=== PATIENT | male | born 1950 | race Caucasian/White ===

== ENCOUNTER → 2020-03-31 10:10 | Outpatient (BNVA) | payer OTHER, SELFPAY | PROVIDERS: Visit Provider Specialist | DX: G95.20 Unspecified cord compression (principal); G82.22 Paraplegia, incomplete; M62.838 Other muscle spasm; G62.9 Polyneuropathy, unspecified; F17.210 Nicotine dependence, cigarettes, uncomplicated | CPT/HCPCS: 99205 ==

== ENCOUNTER → 2020-09-02 11:39 | Outpatient (BNVA) | payer OTHER, SELFPAY | PROVIDERS: Visit Provider Specialist | DX: G62.9 Polyneuropathy, unspecified (principal); M62.838 Other muscle spasm; G82.20 Paraplegia, unspecified; M48.02 Spinal stenosis, cervical region; G99.2 Myelopathy in diseases classified elsewhere; S24.101S Unspecified injury at T1 level of thoracic spinal cord, sequela; Y93.9 Activity, unspecified; F17.210 Nicotine dependence, cigarettes, uncomplicated | CPT/HCPCS: 99215 ==

== ENCOUNTER → 2020-09-09 08:59 | Outpatient (BNVA) | payer OTHER, SELFPAY | PROVIDERS: Visit Provider Orthopaedic Surgery | DX: M47.892 Other spondylosis, cervical region (principal); M54.2 Cervicalgia | CPT/HCPCS: 72050 ==

== ENCOUNTER → 2020-10-13 12:35 | Outpatient (BNVA) | payer OTHER, SELFPAY | PROVIDERS: PCP Nurse Practitioner; Visit Provider Orthopaedic Surgery | DX: Z01.812 Encounter for preprocedural laboratory examination (principal); Z20.822 Contact with and (suspected) exposure to COVID-19 | CPT/HCPCS: 87635 ==

== ENCOUNTER 2020-10-18 06:01 | Day surgery (SDC) | payer OTHER, SELFPAY ==
[2020-10-13 11:21] VITALS: BMI 24.4
--- NOTE | 2020-10-13 11:27 | ECG_ITS ---
[facility] Test Date: 2020-10-13 Pat Name: Jovany Adhikari Department: Room: Gender: Male Security Sme: : 1950 Requested By: Je Kingsley Order Number: [id number] Lyndon MD: ELADIO MATOS Measurements Intervals [employer] Rate: 56 P: 82 HI: 129 QRS: 81 QRSD: 90 T: 72 QT: 380 QTc: 369 Interpretive Statements SINUS BRADYCARDIA No previous ECG available for comparison Electronically Signed On 10-13-2020 21:10:02 CDT by ELADIO MATOS [email or web address]
--- NOTE | 2020-10-13 15:43 | ANES.PREANE2 ---
Pre-Anesthetic Assessment Pre-Anesthetic Assessment: Height/Weight: Height 1.65 m Weight 66.678 kg Proposed Procedure: Operation Date: 10/18/20 12:00 Proposed Procedures p ACDF C3-4 07183 C4-5 C5-6 insrumenation from 3-6 allograft 41673 66425 43142 84361 93507 M47.12(Not Applicable) - Godfrey H Geovanna, DO Was Beta Daniel taken within 24 hours: N/A Social: Social History: Tobacco and No alcohol Exam: Pre-Anes Outpt Exam: alert, oriented x 3 and regular rate & rhythm Airway: Submandibular: WNL Cervical ROM: WNL MP: 2 Dentition: Chipped Pulmonary: Pulmonary: COPD CV/HEM: CV/HEM: HTN Musc/skel: Musc/skel: Lower Back Pain Comments: Neck pain with BL upper extremity pain Neuropsych: Neuropsych: Neuropathy Anesthetic Plan: ASA status: 3 Anesthesia: General Risk of > 500 ml blood loss (7ml/kg in children): No PFSH Anesthesia PFSH: Family History Other CAD (coronary artery disease) Diabetes Social History Smoking and tobacco status: current every day smoker (1/2 pack a day ) cigarettes Packs smoked per day: 0.5 Alcohol intake: current Alcohol intake frequency: 0-2 Drinks per Day Alcohol type: beer and hard liquor History of recent travel: No Data Anesthesia Cardiac Studies: No Data to Display
[2020-10-18] VITALS (22 sets, daily range): BP systolic 103–135; BP diastolic 50–89; PULSE 58–90; RESP 10–25; TEMP 36.1–36.6; O2SAT 93–100
--- NOTE | 2020-10-18 | SCC_ITS ---
Procedure Done: 1. Anterior diskectomy C3/4 2. Anterior diskectomy C4/5 3. Anterior diskectomy C5/6 4. Insertion of cage at C3/4 5. Insertion of cage at C4/5 6. Insertion of cage C5/6 7. Instrumentation with anterior plate from C3-C6 8. Use of allograft 43.9 seconds of fluoroscopic guidance, for a cumulative dose of 3.21 mGy, was provided to Dr. Austin by the radiology department. C-arm images of the cervical spine were saved for the patient's permanent record. KIRAN
--- NOTE | 2020-10-18 | XR_ITS ---
WS: [id number] C-ARM RADIOGRAPHS CERVICAL SPINE; 3 IMAGES HISTORY: ACDF COMPARISON: None available. Intraoperative anterior cervical fusion with disc spacers has been performed. This fusion appears to extend from C3 to C7. XR/XR cervical spine 3V* 11809 IMPRESSION: Intraoperative imaging during anterior cervical fusion placement.
--- NOTE | 2020-10-18 06:21 | P.ANESUD_ITS ---
Pre-Anesthetic Update Pre-Anesthetic Assessment: Date of Surgery/Procedure: 10/18/20 Preop Patience gnosis: cervical spondylosis with myelopathy Proposed Procedure: Operation Date: 10/18/20 07:00 Proposed Procedures p ACDF C3-4 81153 C4-5 C5-6 insrumenation from 3-6 allograft 69973 37238 22615 07048 74772 M47.12(Not Applicable) - Godfrey Austin, DO Any changes to Pre-Anesthetic Assessment?: No Exam: Pre-Anes Outpt Exam: alert, oriented x 3, clear to auscultation bilaterally and regular rate & rhythm Cardiac Studies: No Data to Display
--- NOTE | 2020-10-18 06:21 | ANES.PAUD2 ---
Pre-Anesthetic Update Pre-Anesthetic Assessment: Date of Surgery/Procedure: 10/18/20 Preop Diagnosis: cervical spondylosis with myelopathy Proposed Procedure: Operation Date: 10/18/20 07:00 Proposed Procedures p ACDF C3-4 16359 C4-5 C5-6 insrumenation from 3-6 allograft 37013 40664 36303 76957 38413 M47.12(Not Applicable) - Godfrey Austin, DO Any changes to Pre-Anesthetic Assessment?: No Exam: Pre-Anes Outpt Exam: alert, oriented x 3, clear to auscultation bilaterally and regular rate & rhythm Cardiac Studies: No Data to Display
[2020-10-18] MEDS: sodium chloride 0.9% 1,000 ML 30 ML IV (06:28)
--- NOTE | 2020-10-18 06:39 | PM.HP ---
Providers/Chief Complaint Primary Care Provider: NICK Vang Chief Complaint: acdf History of Present Illness Jovany Adhikari is a 69 year old male valuation of his neck pain. He does use a walking cane and has a wide base gait. He is unsteady on his feet and frequently uses the wall for balance in clinic today. He states he fell twice in January of 2020. The first was a fall in a hallway and the second was in a kitchen and he hit his head on a cabinet. He describes new balance issues since his fall as well difficulty with fine motor skills such as using buttons. Onset: 01/2020 Duration: 7 months Characteristics: numbness, sharp, stabbing Severity: 08/28 Location: neck and back Radiating symptoms: numbness to hands Aggravating factors: laying down, hurts all the time Alleviating factors: gapapentine Neuro deficits: denies incontinence of bowel/bladder, saddle anesthesia. Prior tx: none Review of Systems Narrative: General ROS: negative for weight changes, fever ENT ROS: negative for nasal congestion, drainage or bleeding, sore throat, dysphagia or ear pain Eyes: PERRL Hematological and Lymphatic ROS: negative for swollen glands or abnormal bleeding Endocrine ROS: negative for polyuria/polydpsia or new changes in weight Respiratory ROS: negative for cough, shortness of breath, or wheezing Cardiovascular ROS: negative for chest pain or dyspnea on exertion Gastrointestinal ROS: negative for reflux, abdominal pain, change in bowel habits, or black or bloody stools Musculoskeletal ROS: negative for back pain, neck pain, or joint pain or swelling except for current problem Neurological ROS: negative for TIA or stoke symptoms Skin: no rashes Medications/Allergies Home Medications Medication Instructions Recorded Confirmed Last Taken Type Blood Pressure Medication PO 03/31/20 09/09/20 Unknown History Walker #1 ea 03/31/20 09/09/20 Unknown Rx albuterol sulfate 90 mcg/actuation 2 puff INHALATION Q6H 03/31/20 10/18/20 10/18/20 History aerosol inhaler baclofen 10 mg tablet 10 mg PO QID #120 tab 03/31/20 10/18/20 Unknown Rx budesonide-formoterol HFA 160 2 puff INHALATION BID 03/31/20 10/18/20 10/18/20 History mcg-4.5 mcg/actuation aerosol inhaler tiotropium bromide 1.25 2 puff INHALATION DAILY 03/31/20 10/13/20 Unknown History mcg/actuation mist for inhalation Bone Growth Stimulator E0748 #1 ea 10/07/20 Unknown Rx hydrocodone 5 mg-acetaminophen 325 1 tab PO Q4H PRN 7 Days #40 tab 10/14/20 Unknown Rx mg tablet Allergies Allergy/AdvReac Type Severity Reaction Status Date / Time No Known Allergies Allergy Verified 09/09/20 08:50 PFSH Acute PFSH: Family History Other CAD (coronary artery disease) Diabetes Social History Smoking and tobacco status: current every day smoker (1/2 pack a day ) cigarettes Packs smoked per day: 0.5 Alcohol intake: current Alcohol intake frequency: 0-2 Drinks per Day Alcohol type: beer and hard liquor History of recent travel: No Vitals/I&O/Wt Last Vital Signs Temp 97.6 F 10/18/20 06:19 Pulse 58 L 10/18/20 06:19 Resp 16 10/18/20 06:19 BP 127/73 10/18/20 06:19 Pulse Ox 98 10/18/20 06:19 Physical Exam Narrative: EXAM NARRATIVE: CONSTITUTIONAL: The patient is a normal appearing [] in no apparent distress. GENERAL: Patient in no acute distress. CARDIAC: Regular rate and rhythm. CHEST: Normal inspiratory effort, normal respiratory rate. ABDOMEN: Soft and nontender. SKIN: Clear, warm and intact. NEURO?PSYCH: The patient is alert and oriented to person, place and time. Sensorv /SILT Motor StrengthShoulder abduction C5 5/5Wrist extension C6 5/5Elbow extension C7 5/5Hand Stone Lathe Operator C8 5/5Finger abduction T15/5 Radial/ Ulnar/ Median n intact LowerSensory (SILT)Motor StrengthHin flexion L2/3Ant/inner thigh 5/5Hip adduction L2/3 5/5Knee extension L4 Lat thigh, 5/5Toe dorsiflexion L5 5/5Ankle dorsiflexion L5/ H41Cvdoufg flexion S1 5/5 DTRBleeps 2+Triceps 2+Brachioradialis 2+Patellar 2+Achilles 2+ MUSCULOSKELETAL: [] UPPEREXTREMITIES: The patient had full active ROM in fingers, wrist, elbow, and shoulder. The patient demonstrated ability to fully flex/extend/abduct/adduct fingers, make ok sign, cross 2nd/3rd digits, extend 1st digit fully.. Radial pulse 2+, CR<2 seconds. LOWER EXTREMITIES: Pt has full, active ROM of toes, ankle, knee, and hip. Dorsalis pedis/posterior tibialis pulses 2+, CR<2 seconds. SPINE: Skin warm, dry, intact. A&P Assessment and plan (1) Cervical spondylosis with myelopathy: Patient hyperextended his neck and a fall back in January has been having issues ever since patient has severe gait issues as well as numbness tingling weakness in his arms. Patient has severe myelopathy he has been progressing. Patient has failed all conservative therapy since this time. Which included physical therapy. At this point no injections or physical therapy can improve his symptoms. 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 My plan is to do a C3-4 C4-5 C5-6 ACDF. I discussed with the patient that he needs to quit smoking in order to allow for better fusion right as well as deal with any swallowing issues. I told him that patient is over 65 that smoke found to have more severe swallowing issues.. Discussed risk and benefits of surgery which include bleeding infection scar pain damage blood vessels nerves risk of further surgery and anesthesia risk. I also discussed with him and in detail the swallowing issues that can occur. At this point my plan is to proceed with surgery as long as he can cut back and quit smoking. His symptoms are severe and if he is unable to completely complete smoking I still will likely do surgery in order to facilitate keeping some of his function. I also did discuss that we will likely be able to get decompress from the back he does have some significant ligamentum flavum infolding at C5-6 and C 4 5. All this information is from the MRI taken on 05/21/2020 from the [facility]. 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
--- NOTE | 2020-10-18 10:38 | P.OP_ITS ---
Operative Report Date of procedure: October 18, 2020 Pre-op Diagnosis: cervical spondylosis with myelopathy Procedure Done: 1. Anterior diskectomy C3/4 2. Anterior diskectomy C4/5 3. Anterior diskectomy C5/6 4. Insertion of cage at C3/4 5. Insertion of cage at C4/5 6. Insertion of cage C5/6 7. Instrumentation with anterior plate from C3-C6 8. Use of allograft Surgeon: Godfrey Austin Anesthesia: General Estimated blood loss (mL): 20 Condition: stable Disposition: PACU Procedure: 1. Anterior diskectomy C3/4 2. Anterior diskectomy C4/5 3. Anterior diskectomy C5/6 4. Insertion of cage at C3/4 5. Insertion of cage at C4/5 6. Insertion of cage C5/6 7. Instrumentation with anterior plate from C3-C6 8. Use of allograft The patient was taken to the operating room, where he underwent general endotracheal anesthesia without complications. He was then positioned supine on the operating table, and all areas of impingement were well padded. The arms were carefully padded and tucked at his sides. A roll was placed between the shoulder blades.. An x-ray was done to determine the appropriate level for the skin incision. The entire neck was then sterilely prepped and draped in the usual fashion. Neuromonitoring was attached prior to prepping. A transverse skin incision was made and carried down to the platysma muscle. This was then split in line with its fibers. Blunt dissection was carried down medial to the carotid sheath and lateral to the trachea and esophagus until the anterior cervical spine was visualized. A needle was placed into a disc and an x-ray was done to determine its location. The longus colli muscles were then elevated bilaterally with the electrocautery unit. Self-retaining retractors were placed deep to the longus colli muscle. Attention was brought to the C3-4 level that was confirmed on x-ray. The microscope was then brought in. A radical anterior discectomies were performed at C3-4. This included complete removal of the anterior annulus, nucleus, and posterior annulus. The posterior longitudinal ligament was removed as were the posterior osteophytes. Foraminotomies were then accomplished bilaterally. This was done using a high speed pawan, kerrison rongeurs and curretes Once all of this was accomplished, the curved currette was used to check for any residual compression. The central canal was wide open as were the foramen. A high-speed bur was used to remove the cartilaginous endplates above and below the interspace. Bleeding cancellous bone was exposed. The disc space were measured and appropriate size cage were placed sterilely onto the field. Allograft graft was packed into the cages. The cage was then placed and there was good juxtaposition against the bleeding decorticated surfaces and good distraction of each interspace. Attention was brought to the next interspace. Attention was brought to the C4/5 level that was confirmed on x-ray. The microscope was then brought in. A radical anterior discectomies were performed at C4/5. This included complete removal of the anterior annulus, nucleus, and posterior annulus. The posterior longitudinal ligament was removed as were the posterior osteophytes. Foraminotomies were then accomplished bilaterally. This was done using a high speed pawan, kerrison rongeurs and curretes Once all of this was accomplished, the curved currette was used to check for any residual compression. The central canal was wide open as were the foramen. A high-speed bur was used to remove the cartilaginous endplates above and below the interspace. Bleeding cancellous bone was exposed. The disc space were measured and appropriate size cage were placed sterilely onto the field. Allogra ft graft was packed into the cages. The cage was then placed and there was good juxtaposition against the bleeding decorticated surfaces and good distraction of each interspace. Attention was brought to the next interspace. Attention was brought to the C5/6 level that was confirmed on x-ray. A caspar pin was placed into the C5 vertebrae and the C6 vertebrae. The disk space was then distracted. The microscope was then brought in. A radical anterior discectomies were performed at C5/6. This included complete removal of the anterior annulus, nucleus, and posterior annulus. The posterior longitudinal ligament was removed as were the posterior osteophytes. Foraminotomies were then accomplished bilaterally. This was done using a high speed pawan, kerrison rongeurs and curretes Once all of this was accomplished, the curved currette was used to check for any residual compression. The central canal was wide open as were the foramen. A high-speed bur was used to remove the cartilaginous endplates above and below the interspace. Bleeding cancellous bone was exposed. The disc space were measured and appropriate size cage were placed sterilely onto the field. Allograft graft was packed into the cages. The cage was then placed and there was good juxtaposition against the bleeding decorticated surfaces and good distraction of each interspace. Attention was brought to the next interspace. The appropriate size anterior cervical locking plate was chosen and bent into gentle lordosis. Two screws were then placed into each of the vertebral bodies at C3, C4, C5 and C6. There was excellent purchase. A final x-ray was done confirming good position of the hardware and Cages. The locking screws were then applied, also with excellent purchase. Following a final copious irrigation, there was good hemostasis and no dural leaks. The carotid pulse was strong. The wounds were then closed in layers using 2-0 Vicryl suture for the platysma muscle, 2-0 Vicryl suture for the subcutaneous tissue, and 4-0 monocryl suture in a subcuticular skin closure. Glue was placed followed by application of a sterile dressing. The drain was hooked to bulb suction. A soft collar was applied. The patient was then carefully returned to the supine position on his hospital bed where he was reversed and extubated and taken to the recovery room having tolerated the procedure well.
[2020-10-18] MEDS: midazolam 1 mg/mL INJ 2 mL IVP (11:13)
--- NOTE | 2020-10-18 12:56 | SUR.PHASEI ---
1035 pt to pacu SLEEPING WITH ORAL AIRWAY IN PLACE, VSS IV PATENT NECK DRESSSING D/I PT CALLED FOR C COLLAR FITTING.
--- NOTE | 2020-10-18 12:57 | SUR.PHASEI ---
1055 PT STILL WITH ORAL AIRWAY IN PLACE AND HAS REQUIRED MANUAL LIFT TO KEEP AIRWAY OPEN EVEN WITH AIRWAY IN PLACE, PT NOW RESTLESS TURNING HEAD SIDE TO SIDE BUT AIRWAY OCCLUDES IF NOT ASSISTED DR GUNN AT BEDSIDE PT MOANING 1110 WAS GOING TO GIVE FENTANYL FOR MOANING , EVEN THOUGH PT COULD NOT RESPOND APPROPRIATEBUT DR HENDRIX REQUESTED VERSED STARTING WITH 0.5MG. SEE MED GIVEN
--- NOTE | 2020-10-18 13:02 | SUR.PHASEI ---
1115 PT NOW OUT REQUIRES MANUAL ASSIST TO KEEP AIRWAY OPEN ORAL AIRWAY PLACED PT DID NOT AWAKE, MANUAL ASSIST NEEDED EVEN WITH ORAL AIRWAY, NECK DRESSING D/I C COLLAR IN PLACE NOW, VSS PT MOVES ALL EXTREMITIES HE WAS RESTLESS AND SITTING UP IN BED EARLIER, BUT REMAINS CONFUSED AND DOES NOT FOCUS ON SPEAKER. 1150 PT NOW AWAKES AND ORAL AIRWAY OUT PT YELLING AND TRYING TO GET UP PT CURSING CONTINUOUSLY PT DOES LOOK AT SPEAKER NOW AND KNOWS HE IS IN THE HOSPITAL PT REPEATEDLY ASKS TO GET UP TO PEE, PT GIVEN URINAL AND ASSISISTED PT LOUDLY REFUSED CURSING WANTS TO GET UP , OPS NURSE AT BEDSIDE ASSISTING TO CALM PT , PT INFORMED HE HAD A CATHETER IN OR AND MAY BE FEELING SOME URGENCY FROM THAT, PT REFUSED TO USE URINAL, PT ALMOST PULLED IV OUT TRYING TO GET OUT OF BED PT REPEATEDLY REMIANDED OF HIS SURROUNDINGS PT STATES ( DONT CARE, LET ME UP)
--- NOTE | 2020-10-18 13:07 | SUR.PHASEI ---
1205 HANOFF AT BEDSIDE PT TO OPS PER CART PT MORE COOPERATIVE, PT GIVEN SIPS OF WATER, AND ASSISTED UP TO SIDE OF BED PT LIMP AND WEAK BUY STOOD ON BOTH LEGS WITH ASSIST PT UNABLE TO VOICE PT ASSISTED BACK TO BED AND FAMILY IN TO BEDSIDE TO CALM PT .
--- NOTE | 2020-10-18 15:59 | ANE.PACU2 ---
Inpatient post-anesthesia follow up: Airway intact: Yes Vital signs: Temperature 97.8 F Pulse Rate 79 Respiratory Rate 15 Blood Pressure 134/88 Pulse Oximetry 95 Oxygen Delivery Me thod Room Air Oxygen Flow Rate 8 Fraction of Inspir ed Oxygen Hydration adequate: Yes Nausea and vomiting: No Pain level: 2 Mental status: Baseline
== END 2020-10-18 14:00 | disposition home or self-care (01) ==
PROVIDERS: PCP Nurse Practitioner; Visit Provider Orthopaedic Surgery
PROC: 0RB30ZZ Excision of Cervical Vertebral Disc, Open Approach (ICD-10-PCS; CPT 22551; principal; 2020-10-18 07:00)
DX: M47.12 Other spondylosis with myelopathy, cervical region (principal); F17.210 Nicotine dependence, cigarettes, uncomplicated
CPT/HCPCS: 20930; 22551; 22552 ×2; 22845; 22853 ×3; 51702; 72040; 76000; 93005; 97760; C1713; C9359; J0330; J0690; J1100; J1170; J1200; J2250; J2370; J2405; J2704; J3010; J3490; J7030; L0174

== ENCOUNTER 2020-10-19 02:36 | Emergency (ER) | payer OTHER, SELFPAY ==
[2020-10-19] VITALS (7 sets, daily range): BP systolic 103–140; BP diastolic 69–95; PULSE 74–81; RESP 16–22; TEMP 37.1; O2SAT 96–98; BMI 24.4
--- NOTE | 2020-10-19 02:40 | XRR_ITS ---
PROCEDURE INFORMATION: Exam: XR Chest Exam date and time: 10/19/2020 2:40 AM Age: 69 years old Clinical indication: Dyspnea; Additional info: SOB TECHNIQUE: Imaging protocol: XR of the chest. Views: 1 view. COMPARISON: CT chest w con* [id number] 06/27/2015 3:16 PM FINDINGS: Lungs: Unremarkable. No consolidation. Pleural spaces: Unremarkable. No pleural effusion. No pneumothorax. Heart/Mediastinum: Unremarkable. No cardiomegaly. Bones/joints: Unremarkable. XR/XR chest 1V portable [id number] IMPRESSION: No acute findings.
--- NOTE | 2020-10-19 02:45 | ED_ITS ---
HPI - Neck Pain/Injury General: Chief Complaint: Shortness of Breath/Dyspnea Stated Complaint: NECK PAIN Time Seen by Provider: 10/19/20 02:37 Source: patient and EMS Mode of arrival: EMS Limitations: no limitations History of Present Illness: HPI Narrative: 69-year-old male who had spinal surgery today with anterior approach in his C-spine. He states he has a history of COPD denies he has increased shortness of breath difficulty swallowing. States he is a not able to swallow his pain pills due to the neck pain from the surgery. He does have some wheezing here and he denies using any breathing treatments at home. He does have a long history of COPD. He has no fever. His pulse ox here is 98% he is able to speak in full sentences and is no distress here. Associated symptoms: Denies headache(s) or nausea Review of Systems Const: Denies: fever(s), chills, body aches or change in appetite Eyes: Denies: blurry vision or eye discomfort ENMT: Reports: odynophagia Card: Denies: chest pain Resp: Reports: dyspnea GI: Denies: abdominal pain, nausea, vomiting or diarrhea : Denies: dysuria Musc: Reports: neck pain Skin/Breast: Denies: rash Neuro: Denies: headache(s) Psych: Denies: depression Evelio/Lymph: Denies: easy bruising All/Imm: Denies: urticaria PFSH ED PFSH: Family History Other CAD (coronary artery disease) Diabetes Social History Smoking and tobacco status: current every day smoker (1/2 pack a day ) cigarettes Packs smoked per day: 0.5 Alcohol intake: current Alcohol intake frequency: 0-2 Drinks per Day Alcohol type: beer and hard liquor History of recent travel: No Physical Exam Const: COMMON NORMALS: no acute distress, patient oriented x3 and healthy appearing HENMT: COMMON NORMALS: normocephalic and atraumatic HEAD & SCALP: normocephalic and atraumatic Eye: COMMON NORMALS: Equal, round and reactive pupils present and EOMs intact bilaterally PUPIL: Yes Equal, round and reactive pupils present Neck/C-Spine: COMMON NORMALS: full ROM and supple Chest: COMMONS NORMALS: normal inspection of the chest and normal palpation of entire chest wall Resp: COMMON NORMALS: normal respiratory effort, No retractions and No use of accessory muscles AUSCULTATION: wheezes Cardio: COMMON NORMALS: regular rate, regular rhythm and No murmurs present (Cardio) RATE: regular rate RHYTHM: regular rhythm GI: COMMON NORMALS: Normal to inspection, nondistended, normoactive bowel sounds present, Soft to palpation, non-tender and no masses PALPATION: Yes Soft to palpation Extremity: COMMON NORMALS: normal to inspection and full ROM Neuro: COMMON NORMALS: patient oriented x3, moves all extremities and no focal motor deficits Psych: COMMON NORMALS: mental status grossly normal, Normal thought process present and cooperative THOUGHT PROCESS: Normal thought process present Skin: COMMON NORMALS: no rashes or lesions noted and no wounds GENERAL SKIN EXAM: no rashes or lesions noted Course Vital Signs: Vital signs: Vital Signs Temperature 98.7 F 10/19/20 02:39 Pulse Rate 74 10/19/20 04:44 Respiratory Rate 19 H 10/19/20 04:44 Blood Pressure 124/69 10/19/20 04:44 Pulse Oximetry 98 10/19/20 04:44 MDM - Neck Pain/Injury MDM Narrative: Medical decision making narrative: Patient presents with neck pain is likely postsurgical. CT scan here shows no acute findings and no signs of obstruction. He is able to tolerate liquids will place him on liquid Lortab as he is not been able to swallow his pain pills likely causing his pain. Is no signs of pneumonia or other finding on his x-ray. He is well-appearing here and stable for discharge he is to follow-up with his surgeon return if worsening. Lab Data: Labs: Lab Results 10/19/20 10/19/20 Range/Units 03:00 03:00 WBC 16.1 H (4.0-10.0) 10^3/ uL RBC 4.28 (4.1-5.3) 10^6/u L Hgb 14.2 (11.7-16.6) g/dL Hct 40.4 L (42.0-52.0) % MCV 94.4 H (80-94) fl MCH 33.2 (28.0-34.0) pg MCHC 35.1 (30.0-36.0) g/dL RDW 12.7 (12.1-15.1) % Plt Count 289 (130-400) 10^3/c mm MPV 11.7 H (7.4-10.4) fL Neut % (Auto) 77.9 % Lymph % (Auto) 9.4 % [place] % (Auto) 12.2 % Eos % (Auto) 0.0 % Baso % (Auto) 0.1 % Neut # (Auto) 12.56 H (1.8-7.7) 10^3/u L Lymph # (Auto) 1.5 (0.8-4.8) 10^3/u L [place] # (Auto) 2.0 H (0.2-0.9) 10^3/u L Eos # (Auto) 0.0 (0.0-0.8) 10^3/u L Baso # (Auto) 0.0 (0.0-0.1) 10^3/u L Nucleated RBC % (a uto) 0 % Nucleated RBCs # 0.0 /100WBC Sodium 138 (136-145) mmol/L Potassium 4.3 (3.5-5.1) mmol/L Chloride 102 (98-107) mmol/L Carbon Dioxide 23 (22-29) mmol/L Anion Gap 17.3 (5-19) BUN 8 (8-23) mg/dL Creatinine 0.9 (0.7-1.2) mg/dL GFR Calculation 83.9 L (90-130) mL/min Glucose 118 H (65-115) mg/dL Calculated Osmolal ity 285 (285-295) mOsm/k g Calcium 9.3 (8.5-10.5) mg/dL Total Bilirubin 0.7 (0.15-1.2) mg/dL AST 30 (0-40) U/L ALT 16 (0-41) U/L Alkaline Phosphata se 48 (40-130) IU/L Total Protein 7.2 (6.6-8.7) g/dL Albumin 4.3 (3.5-5.2) g/dL Globulin 2.9 (1.3-4.6) g/dL Imaging Data^: Other CT: Radiologist's impression: [facility] [address] [address] Scan Report Signed Patient: Jovany Adhikari Unit #: [id number] : 1950 Age/Sex: 69 / M ADM Date: 10/19/20 Loc: ER Room/Bed: Attending Dr: Ordering Provider/Ordering MD: Kedar Patino MD Date of Service: 10/19/20 Procedure(s): CT neck w con* [id number] Accession Number(s): [id number] Report Number: [id number] PROCEDURE INFORMATION: Exam: CT Neck With Contrast Exam date and time: 10/19/2020 2:44 AM Age: 69 years old Clinical indication: Neck pain; Prior surgery; Surgery date: Post-operative (0-2 days) TECHNIQUE: Imaging protocol: Computed tomography images of the neck with contrast. Radiation optimization: All CT scans at this facility use at least one of these dose optimization techniques: automated exposure control; mA and/or kV adjustment per patient size (includes targeted exams where dose is matched to clinical indication); or iterative reconstruction. Contrast material: OMNI 300; Contrast volume: 95 ml; Contrast route: INTRAVENOUS (IV); COMPARISON: CT Cervical Spine wo* [id number] 06/27/2015 3:09 PM RADIATION DOSE METRICS: Total DLP (mGy-cm): 888.02 FINDINGS: Nasopharynx: Unremarkable. Oropharynx: Unremarkable. No significant tonsillar enlargement. Hypopharynx: Unremarkable. Larynx: Unremarkable. Normal epiglottis. Retropharyngeal space: Unremarkable. Submandibular/Parotid glands: Normal. Glands are normal in size. Thyroid: Normal. No enlarged or calcified nodules. Lymph nodes: Unremarkable. No lymphadenopathy. Trachea: Visualized trachea is unremarkable. Lungs: Centrilobular and paraseptal emphysema is present. Bones/joints: There is mild levocurvature of the cervical spine. There is slight straightening of the normal cervical lordosis, with grade 1 anterolisthesis of C2 and C4, and grade 1 retrolisthesis of C3. The patient is status post C2-C5 anterior fusion. No fracture or subluxation identified. Degenerative changes of the cervical spine seen. Soft tissues: Expected postoperative soft tissue edema and small amount of subcutaneous emphysema is seen along the anterior aspect the neck and prevertebral soft tissues, resulting in slight effacement of the airway. No discrete fluid collection visualized. CT/CT neck w con* [id number] IMPRESSION: Status post C2-C5 anterior fusion with expected postoperative soft tissue changes. No discrete fluid collection identified. Radiation Dose CTDIVOL = (mGy): DLP = 888.02 (mGy-cm) Dictated By: Alexsander Aguayo Signed By: Alexsander Aguayo Signed Date/Time: 10/19/20449 DD/ 7 CXR: Attestation: I personally reviewed and interpreted this imaging study as follows: Radiologist's impression: [address] [address] XRay Report Signed Patient: Jovany Adhikari Unit #: [id number] : 1950 32 Age/Sex: 69 / M ADM Date: 10/19/20 Loc: ER Room/Bed: Attending Dr: Ordering Provider/Ordering MD: Kedar Patino MD Date of Service: 10/19/20 Procedure(s): XR chest 1V portable [id number] Accession Number(s): [id number] Report Number: [id number] PROCEDURE INFORMATION: Exam: XR Chest Exam date and time: 10/19/2020 2:40 AM Age: 69 years old Clinical indication: Dyspnea; Additional info: SOB TECHNIQUE: Imaging protocol: XR of the chest. Views: 1 view. COMPARISON: CT chest w con* [id number] 06/27/2015 3:16 PM FINDINGS: Lungs: Unremarkable. No consolidation. Pleural spaces: Unremarkable. No pleural effusion. No pneumothorax. Heart/Mediastinum: Unremarkable. No cardiomegaly. Bones/joints: Unremarkable. XR/XR chest 1V portable [id number] IMPRESSION: No acute findings. Dictated By: Alexsander Aguayo Signed By: Alexsander Aguayo Signed Date/Time: 10/19/20449 DD/ 8 Discharge Plan Discharge Patient Disposition: Home Clinical Impression: Neck pain, Asthma with exacerbation Condition: Stable Prescriptions: New Lortab Elixir 10-300 mg/15 mL solution 15 ml PO Q8H PRN (Reason: pain) Qty: 180 RF: 0 No Action Blood Pressure Medication PO RF: 0 budesonide-formoterol [Symbicort] 160-4.5 mcg/actuation HFA aerosol inhaler 2 puff inhalation BID RF: 0 Spiriva Respimat 1.25 mcg/actuation mist 2 puff inhalation DAILY RF: 0 albuterol sulfate 90 mcg/actuation HFA aerosol inhaler 2 puff inhalation Q6H RF: 0 (DME) Walker See Rx Instructions .Route .MEDSUPPLY Qty: 1 RF: 0 baclofen 10 mg tablet 10 mg PO QID Qty: 120 RF: 0 (DME) Bone Growth Stimulator E0748 See Rx Instructions .Route .MEDSUPPLY Qty: 1 RF: 0 hydrocodone-acetaminophen 5-325 mg tablet 1 tab PO Q4H PRN (Reason: pain) 7 Days Qty: 40 RF: 0 hydrocodone-acetaminophen 10-325 mg tablet 1 tab PO Q4H PRN (Reason: pain) 7 Days Qty: 40 RF: 0 hydrocodone-acetaminophen 10-325 mg tablet 1 tab PO Q4H PRN (Reason: pain) 7 Days Qty: 40 RF: 0 Discharge Orders: Discharge ED (Routine); Ordered 10/19/20 Ordered By: Kedar Patino Referrals: Shantell Delong FNP [Primary Care Provider] - Discharge Diet: Advance as tolerated Discharge Activity: Resume usual activity Patient Instructions: Dyspnea (ED), Opioid Safety Coding Level of Care Code ED Natural Science Manager for [employer] Fwd Exam Comprehensive
[2020-10-19] MEDS: ipratropium-albuterol 3 mL Neb INHALATION (02:56)
[2020-10-19] MEDS: morphine 4 mg/mL SDV 1 mL IVP (03:04)
[2020-10-19] MEDS: ondansetron 2 mg/ML SDV 2 mL 4 MG IVP (03:04)
[2020-10-19 03:12] LABS: Basophils % 0.1 %; Hematocrit 40.4 % (42.0-52.0); Hemoglobin 14.2 g/dL (11.7-16.6); Lymphocytes # 1.5 10^3/uL (0.8-4.8); Lymphocytes % 9.4 %; Mean Corpuscular HGB Conc 35.1 g/dL (30.0-36.0); Mean Corpuscular Hemoglobin 33.2 pg (28.0-34.0); Mean Corpuscular Volume 94.4 fl (80-94); Mean Platelet Volume 11.7 fL (7.4-10.4); Monocytes % 12.2 %; Neutrophils # 12.56 10^3/uL (1.8-7.7); Neutrophils % 77.9 %; Nucleated Red Blood Cells % 0 %; Platelet Count 289 10^3/cmm (130-400); Red Blood Count 4.28 10^6/uL (4.1-5.3); Red Cell Distribution Width 12.7 % (12.1-15.1); White Blood Count 16.1 10^3/uL (4.0-10.0)
[2020-10-19 03:27] LABS: Alanine Aminotransferase 16 U/L (0-41); Albumin Level 4.3 g/dL (3.5-5.2); Alkaline Phosphatase 48 IU/L (40-130); Blood Urea Nitrogen 8 mg/dL (8-23); Calcium 9.3 mg/dL (8.5-10.5); Carbon Dioxide 23 mmol/L (22-29); Chloride 102 mmol/L (98-107); Globulin 2.9 g/dL (1.3-4.6); Glomerular Filtration Rate 83.9 mL/min (90-130); Glucose 118 mg/dL (65-115); Osmolality Calculated 285 mOsm/kg (285-295); Sodium 138 mmol/L (136-145); Total Bilirubin 0.7 mg/dL (0.15-1.2); Total Protein 7.2 g/dL (6.6-8.7)
[2020-10-19 03:33] LABS: Anion Gap 17.3 (5-19); Aspartate Amino Transferase 30 U/L (0-40); Potassium 4.3 mmol/L (3.5-5.1)
[2020-10-19] MEDS: HYDROmorphone 1 mg/mL INJ 1 mL IVP ×2 (03:50→05:24)
[2020-10-19] MEDS: iohexol 300 mg/mL 100 mL Btl IV (04:18)
--- NOTE | 2020-10-19 05:16 | PC.NURSE ---
Assisted with ambulated to bathroom.
== END 2020-10-19 05:53 | disposition home or self-care (01) ==
PROVIDERS: Emergency Provider Emergency Medicine; PCP Nurse Practitioner
DX: M54.2 Cervicalgia (principal); J45.901 Unspecified asthma with (acute) exacerbation; J44.9 Chronic obstructive pulmonary disease, unspecified; I25.10 Atherosclerotic heart disease of native coronary artery without angina pectoris; E11.9 Type 2 diabetes mellitus without complications; F17.210 Nicotine dependence, cigarettes, uncomplicated; Z98.890 Other specified postprocedural states
CPT/HCPCS: 70491; 71045; 80053; 85025; 94640; 96374; 96375; 96376; 99284; J1170; J2270; J2405; Q9967

== ENCOUNTER → 2020-11-02 09:57 | Outpatient (BNVA) | payer OTHER, SELFPAY | PROVIDERS: PCP Nurse Practitioner; Visit Provider Orthopaedic Surgery | DX: M47.12 Other spondylosis with myelopathy, cervical region (principal); Z48.89 Encounter for other specified surgical aftercare | CPT/HCPCS: 72040 ==

== ENCOUNTER → 2020-12-02 08:29 | Outpatient (BNVA) | payer OTHER, SELFPAY | PROVIDERS: PCP Nurse Practitioner; Visit Provider Orthopaedic Surgery | DX: M47.12 Other spondylosis with myelopathy, cervical region (principal); M48.02 Spinal stenosis, cervical region; G99.2 Myelopathy in diseases classified elsewhere | CPT/HCPCS: 72040 ==

== ENCOUNTER → 2020-12-08 10:43 | Outpatient (BNVA) | payer OTHER, SELFPAY | PROVIDERS: PCP Nurse Practitioner; Visit Provider Specialist | DX: G95.9 Disease of spinal cord, unspecified (principal); G82.20 Paraplegia, unspecified; M79.641 Pain in right hand; M79.642 Pain in left hand; F17.210 Nicotine dependence, cigarettes, uncomplicated | CPT/HCPCS: 99214; 99215 ==

== ENCOUNTER 2021-01-05 07:23 | Outpatient (RCR) | payer OTHER, SELFPAY | END 2021-01-18 23:59 | disposition home or self-care (01) | LOC: SPT 07:23 | PROVIDERS: PCP Nurse Practitioner; Referring Provider Specialist; Visit Provider Specialist | DX: R26.81 Unsteadiness on feet | CPT/HCPCS: 97110; 97161; 99214 ==

== ENCOUNTER → 2021-01-18 08:29 | Outpatient (BNVA) | payer OTHER, SELFPAY | PROVIDERS: PCP Nurse Practitioner; Visit Provider Orthopaedic Surgery | DX: M47.12 Other spondylosis with myelopathy, cervical region (principal); Z98.890 Other specified postprocedural states; Z47.89 Encounter for other orthopedic aftercare; Z98.1 Arthrodesis status; G95.9 Disease of spinal cord, unspecified | CPT/HCPCS: 72040 ==

== ENCOUNTER → 2021-01-31 08:21 | Outpatient (BNVA) | payer OTHER, SELFPAY | PROVIDERS: PCP Nurse Practitioner; Visit Provider Specialist | DX: R29.90 Unspecified symptoms and signs involving the nervous system (principal) | CPT/HCPCS: G0463 ==

== ENCOUNTER → 2021-03-01 08:47 | Outpatient (BNVA) | payer OTHER, SELFPAY | PROVIDERS: PCP Nurse Practitioner; Visit Provider Orthopaedic Surgery | DX: Z47.89 Encounter for other orthopedic aftercare (principal); Z98.1 Arthrodesis status | CPT/HCPCS: 72040 ==

== ENCOUNTER → 2021-03-14 09:59 | Outpatient (BNVA) | payer OTHER, SELFPAY | PROVIDERS: PCP Nurse Practitioner; Visit Provider Orthopaedic Surgery | DX: Z20.822 Contact with and (suspected) exposure to COVID-19 (principal); Z01.818 Encounter for other preprocedural examination | CPT/HCPCS: 87635 ==

== ENCOUNTER 2021-03-21 06:00 | Inpatient (IN) | payer OTHER, SELFPAY ==
[2021-03-17 12:17] VITALS: BMI 21.6
--- NOTE | 2021-03-17 12:32 | ECG_ITS ---
[facility] Test Date: 2021-03-17 Pat Name: Jovany Adhikari Department: Room: Gender: Male [employer] Feeder: : 1950 Requested By: Godfrey Charles Order Number: [id number] Lyndon MD: Idania Velazquez M.D. Measurements Intervals [place] Rate: 47 P: 74 RI: 133 QRS: 87 QRSD: 88 T: 72 QT: 462 QTc: 409 Interpretive Statements SINUS BRADYCARDIA POSSIBLE RIGHT VENTRICULAR CONDUCTION DELAY [RSR (QR) IN V1/V2] ANTERIOR MYOCARDIAL INFARCTION , PROBABLY RECENT Compared to ECG 10/13/2020 11:30:21 Myocardial infarct finding now present Electronically Signed On 03-17-2021 22:22:18 STAFF EDITOR by Idania Velazquez M.D. [id number]
--- NOTE | 2021-03-17 12:53 | ANES.PREANE2 ---
Pre-Anesthetic Assessment Height/Weight: Height 1.65 m Weight 58.967 kg Preop Diagnosis: cervical spondylosis with myelopathy Operation Date: 03/21/21 10:05 Proposed Procedures p Anterior Cervical Discectomy & Fusion C2-T2 62242/[id number]/05821//M47.12(Not Applicable) - DO karen Abarca Cervical Decompression(Not Applicable) - Godfrey Austin DO Familial anesthetic complications: None Was Beta Daniel taken within 24 hours: N/A Was Clonidine taken within 24 hours: N/A Social Alcohol and Tobacco Exam alert and oriented x 3 Jose and rhonchi Airway Submandibular: within normal limits Cervical ROM: within normal limits (minor limitation from previous surgery) Dentition: chipped Pulmonary Chronic Obstructive Pulmonary Disease CV/HEM Coronary Artery Disease and Hypertension Metabolic Diabetes Mellitus Neuropsych Neuropathy Anesthetic Plan ASA status: 3 Anesthesia: General Risk of > 500 ml blood loss (7ml/kg in children): No Medications/Allergies Home Medications Medication Instructions Recorded Confirmed Last Taken Type Walker #1 ea 03/31/20 03/01/21 Unknown Rx baclofen 10 mg tablet 10 mg PO QID #120 tab 03/31/20 03/17/21 Unknown Rx budesonide-formoterol HFA 160 2 puff INHALATION BID 03/31/20 03/17/21 10/18/20 History mcg-4.5 mcg/actuation aerosol inhaler (Symbicort) tiotropium bromide 1.25 2 puff INHALATION DAILY 03/31/20 03/17/21 Unknown History mcg/actuation mist for inhalation (Spiriva Respimat) hydrocodone 5 mg-acetaminophen 325 1 tab PO Q4H PRN 7 Days #40 tab 01/24/21 03/01/21 Unknown Rx mg tablet albuterol 90 mcg/actuation aerosol mcg INHALATION 03/17/21 Unknown History inhaler docusate sodium 100 mg capsule 100 mg PO BID 03/17/21 03/17/21 Unknown History ergocalciferol (vitamin D2) 1,250 1,250 mcg PO DAILY 03/17/21 03/17/21 Unknown History mcg (50,000 unit) capsule hydroxyzine HCl 25 mg tablet 25 mg PO TID PRN 03/17/21 03/17/21 Unknown History nicotine (polacrilex) 2 mg gum 2 mg BUCCAL Q2H 03/17/21 03/17/21 Unknown History polyethylene glycol 3350 17 gram 17 g PO DAILY 03/17/21 03/17/21 Unknown History oral powder packet (Miralax) tamsulosin 0.4 mg capsule 0.4 mg PO DAILY 03/17/21 03/17/21 Unknown History Allergies Allergy/AdvReac Type Severity Reaction Status Date / Time gabapentin Allergy Mild Rash Verified 03/01/21 08:49 [facility] Anesthesia Family History Other CAD (coronary artery disease) Diabetes Social History Alcohol intake: current Alcohol intake frequency: 0-2 Drinks per Day Alcohol type: beer and hard liquor History of recent travel: No Data Anesthesia Cardiac Studies: No Data to Display
[2021-03-21] VITALS (21 sets, daily range): BP systolic 122–176; BP diastolic 66–98; PULSE 54–90; RESP 14–18; TEMP 36.2–36.8; O2SAT 92–100; BMI 22.5
--- NOTE | 2021-03-21 | XR_ITS ---
WS: [id number] XR cervical spine 1V [id number] REASON FOR EXAM: spondylosis with cervical myelopathy FINDINGS: Previous anterior plate and screw fixation with interbody fusion devices C3-C6. The surgical devices remain in proper position and alignment. Posterior pedicle screws now placed from C2 to C6. Additional posterior pedicle screws at presumed T1 and T2 to be confirmed by follow-up examinations. Surgical appliances appear in proper position and alignment. XR/XR cervical spine 1V [id number] IMPRESSION: Instrumentation of cervical spine as above.
--- NOTE | 2021-03-21 | SCC_ITS ---
Procedure done: 1. C2-T2 posterior spine fusion 2. C2 - T2 instrumentation 3. C3 Laminectomy with bilateral partial facetectomies 4. C4 Laminectomy with bilateral partial facetectomies 5. C5 Laminectomy with bilateral partial facetectomies 6. C6 Laminectomy with bilateral partial facetectomies 7. Use of autograft 8. use of allograft 54.3 seconds of fluoroscopic guidance, for a cumulative dose of 10.39 mGy, was provided to Dr. Austin by the radiology department. C-arm images of the cervical spine were saved for the patient's permanent record. KIRAN
--- NOTE | 2021-03-21 06:22 | P.ANESUD_ITS ---
Pre-Anesthetic Update Pre-Anesthetic Assessment: Date of Surgery/Procedure: 03/21/21 Preop Patience gnosis: Cervical myelopathyWith previous cervical ACDF Proposed Procedure: Operation Date: 03/21/21 07:00 Proposed Procedures p Posterior Cervical Discectomy & Fusion C2-T2 74273/[id number]/02007//M47.12(Not Applicable) - Godfreyowen Austin, DO s Cervical Decompression(Not Applicable) - Godfrey H Geovanna, DO Any changes to Pre-Anesthetic Assessment?: No Changes from Pre-Anesthetic Assessment: none Exam: Pre-Anes Outpt Exam: alert, oriented x 3, clear to auscultation bilaterally and regular rate & rhythm Cardiac Studies: No Data to Display
[2021-03-21] MEDS: sodium chloride 0.9% 1,000 ML 30 ML IV (06:28)
--- NOTE | 2021-03-21 06:35 | W.PM.OPSUD ---
Surgery/Procedure H&P Update DATE OF PROCEDURE: March 21, 2021 DATE H&P PERFORMED: 03/01/21 CHANGES TO PREVIOUS DOCUMENTATION: h+P reviewed agree with above no changes PREOP DIAGNOSIS: Cervical myelopathyWith previous cervical ACDF PLANNED PROCEDURE: Operation Date: 03/21/21 07:00 Proposed Procedures p Posterior Cervical Discectomy & Fusion C2-T2 [id number]/91781//M47.12(Not Applicable) - Godfrey Austin DO s Cervical Decompression(Not Applicable) - Godfrey Austin DO
--- NOTE | 2021-03-21 08:05 | SUR.OPER ---
0748 family updated of surgical status
--- NOTE | 2021-03-21 08:45 | SUR.OPER ---
0845 family updated of surgical status
[2021-03-21] MEDS: vancomycin 1,000 MG SDV 1000 MG XX (09:29)
--- NOTE | 2021-03-21 09:43 | SUR.OPER ---
0943 family updated of surgical status
--- NOTE | 2021-03-21 10:19 | P.OP_ITS ---
Operative Report Date of procedure: March 21, 2021 Pre-op diagnosis: Preop Diagnosis Cervical myelopathyWith previous cervical ACDF Post-op diagnosis: same Procedure done: 1. C2-T2 posterior spine fusion 2. C2 - T2 instrumentation 3. C3 Laminectomy with bilateral partial facetectomies 4. C4 Laminectomy with bilateral partial facetectomies 5. C5 Laminectomy with bilateral partial facetectomies 6. C6 Laminectomy with bilateral partial facetectomies 7. Use of autograft 8. use of allograft Surgeon: Godfrey Austin Estimated blood loss (mL): 100 Procedure: 1. C2-T2 posterior spine fusion 2. C2 - T2 instrumentation 3. C3 Laminectomy with bilateral partial facetectomies 4. C4 Laminectomy with bilateral partial facetectomies 5. C5 Laminectomy with bilateral partial facetectomies 6. C6 Laminectomy with bilateral partial facetectomies 7. Use of autograft 8. use of allograft Patient is brought to the operative suite after undergoing anesthesia all areas impingement well-padded after he was flipped into the prone position. The posterior cervical neck was prepped and draped in normal sterile fashion. Skin incision is made over the C2-T2 area in the posterior cervical spine. The posterior cervical fascia was identified spinous process from C2-T2 were identified subperiosteal dissection was made out to the lateral masses from C2- C7 bilaterally. And out to the transverse processes of T1 and T2 bilaterally. Once levels were confirmed under C arm the attention was brought to placing the screws. The C2 screws were placed in a pars technique. Then the attention was brought to placing the lateral mass screws at C3-C4-C5 and C6 bilaterally. These were done using the drill and then placing the screws. Next attention was brought to placing the T1 and T2 pedicle screws. These were done under C-arm guidance using the drill followed by the pedicle finder followed by the pedicle feeler followed by placing the screws. After the screws were placed attention was then brought to performing the laminectomies with partial facetectomies. This was done starting at C6. The lamina was cut bilaterally at C6 and then this was done using a drill and then the curette was used to undermine it and then a size #2 Kerrison was used to cut the remaining bone this process was repeated at C5 again using the high-speed drill curved curette and Kerrison technique. Again the C4 level was done again using the drill to cut the lamina bilaterally using the curved curette and Kerrison and then the process was repeated at C3 again using the high-speed drill curved curette and Kerrison rongeur. Next a size 3 Kerrison was used to take down the ligamentum flavum distal to C6. And then a rongeur was used to take the lamina up starting at C6 and using a curved curette to undermine the lamina as it comes up. The lamina was removed from C6 C5 C4 and C3. It was brought to performing partial facetectomies at C3-4 C4-5 C5-6 and C6-7. This was done bilaterally using the #2 Kerrison along the edges all the way down both the right and left sides. Small curved curette was used to feel the nerve roots of C3-C4-C5 and C6 is again all the foramen to ensure that the nerve roots were decompressed. Spinal cord was decompressed. Once all the nerves were felt to be adequate decompressed attention was then brought to placing the rods. The spinal cord was significantly compressed and the spinal cord floated up post eriorly and had good pulse. Next the rods were attached to the screws from C2 all the way down to T2. And caps were placed this was done bilaterally. Next attention was brought to decorticating the bone from C2 and lamina and the lamina of T1 and T2 and C7. This was done bilaterally. And then the lateral aspects of the lateral masses were decorticated with a high-speed drill as well. The allograft and autograft were placed into the lateral gutters and on the lamina bilaterally. From C2-T2 once this was completed then wound was irrigated prior to all this and then vancomycin powder was placed deep drain was placed and wound was closed in a layered fashion with 0 Vicryl 2-0 Vicryl and Monocryl suture. Sterile dressings were applied and patient was transferred to the PACU in stable condition.
--- NOTE | 2021-03-21 11:22 | PC.NURSE ---
Patient yelling and cursing. Patient continues to stated I got to piss and I got to shit. Let me the fuck up so I can shit. Patient educated that he is unable to get up at this time due to his recent procedure and medication they had administered. Patient gets very angry with staff and continues to try to get out of bed. Dr. Escobedo notified of patients behavior. Orders given for 0.5mg of versed. Orders placed and medication administered to patient. Will monitor patient.
--- NOTE | 2021-03-21 11:24 | PC.NURSE ---
pt arrived to recovery initially being recovered by Lulu Don RN this nurse took over pt who was disruptive and being rude pt kept stating about pain so this nurse admin 50mcg of fent. pt would not lay still to allow for vital signs to be taken and was trying to climb out of the bed saying he needed to ST this nurse offered a bed montemayor but pt said no he wanted to sit on a toilet this nurse stated he was just out of surgery and was not able to get out of bed yet and a bed montemayor was offered again pt then stated he had to urinate and was told repeatedly that he had a catheter in and it was doing the work for him pt just kept repeating these things in a less that polite verbage over and over and finally pulled out the F word on this nurse. pt was sent over to recovery in extended care waiting on a floor bed daughter was called it was discussed in pre op that he may be that way when he woke up and the daughter stated she could handle him when he was like that report was given to Ita Ramirez RN in outpatient recovery.
[2021-03-21] MEDS: midazolam 1 mg/mL INJ 5 ML 0.5 MG IV (11:27)
[2021-03-21] MEDS: fentaNYL 50 mcg/mL INJ 2mL IVP ×2 (11:55→13:40)
--- NOTE | 2021-03-21 11:55 | PC.NURSE ---
Patient continues to yell and curse at staff and at family. Staff educated patient and family that the patient is unable to set up in bed at this time. Patient continues to report that he needs to piss and shit. Patient also states that he wants to get up. This RN asked patient if he was in pain and he stated yes and then this RN asked the patient to rate his pain on a scale of 1-10. Patient then states a mother fucker. Fentanyl administered to patient for pain. PT at the bedside at this time and set the patient up in bed. Patient continues to push at PT and stating can you guys just leave me the fuck alone and let me get up and piss. After fentanyl was administered patient began to calm down and staff laid patient back in bed. Will continue to monitor patient.
--- NOTE | 2021-03-21 12:08 | PC.NURSE ---
Patient begins to state that he wants to set up again. This RN heres the family helping the patient up to the edge of bed. Family has been educated not to get patient up but continues to do so.
--- NOTE | 2021-03-21 12:53 | PC.NURSE ---
Family has patient standing up at bedside. This RN educated patient that he is unable to get up until seen by PT or physician okays it. Patients family asked staff if we could get him on a bedside commode. Patient continues to curse at staff. This RN gets ahold of Dr. Austin and at this time the physician okays the patient getting up with staff. This RN obtained another nurse and a bedside commode to get the patient up to the commode so he could go to the restroom like he was requesting. Patient was unable to go after setting on the bedside commode. Patient then helped back to bed. Patient positioned in bed and was resting at this time. During position patient, the patient was cursing staff. Staff asked patient to please not curse at staff. Hemovac drain was drained at this time 200mL of fluid drained. Family educated for a second time about the visitor policy due to family switching in and out multiple times. After this RN walked out of the room. A 3rd family member walked into the patients room. Thats is when FRACISCO Garcia went to patients room and educated the family that one of them need to leave that only 2 people are allowed in the room and there cannot be any switching in and out. Clay Transporter and Director notified of the incident.
[2021-03-21] MEDS: HYDROcodone-acetaminophen 5-325 mg Tablet PO ×2 (13:22→18:59)
--- NOTE | 2021-03-21 13:40 | PC.NURSE ---
Lindsey cath removed at this time per Dr. Estevez order.
--- NOTE | 2021-03-21 13:44 | ANE.PACU2 ---
Inpatient post-anesthesia follow up: Airway intact: Yes Vital signs: Temperature 97.1 F Pulse Rate 85 Respiratory Rate 16 Blood Pressure 124/89 Pulse Oximetry 96 Oxygen Delivery Me thod Room Air Oxygen Flow Rate 2 Fraction of Inspir ed Oxygen Hydration adequate: Yes Nausea and vomiting: No Pain level: 5 Mental status: Baseline
[2021-03-21] MEDS: baclofen 10 mg Tablet PO ×2 (17:33→21:06)
[2021-03-21] MEDS: docusate sodium 100 mg Capsule PO (17:33)
[2021-03-21] MEDS: morphine 4 mg/mL SDV 1 mL 2 MG IVP ×2 (17:33→21:16)
[2021-03-21] MEDS: lactated ringers 1,000 ML 90 ML IV (17:34)
[2021-03-21] MEDS: nicotine 2 mg Gum BUCCAL ×2 (18:59→21:17)
[2021-03-21] MEDS: LORazepam 2 mg/mL INJ 1 mL 0.5 MG IVP (19:59)
[2021-03-21] MEDS: hyDROXYzine 25 mg Capsule PO (21:06)
[2021-03-21] MEDS: oxyCODONE 5 mg IR Tab/Cap PO (22:30)
[2021-03-22] VITALS (9 sets, daily range): BP systolic 126–149; BP diastolic 66–75; PULSE 61–65; RESP 16–18; TEMP 36.8; O2SAT 92–96
[2021-03-22] MEDS: morphine 4 mg/mL SDV 1 mL 2 MG IVP ×2 (01:37→05:42)
[2021-03-22] MEDS: oxyCODONE 5 mg IR Tab/Cap PO ×2 (02:49→07:11)
[2021-03-22] MEDS: ketorolac 30 mg/mL INJ IVP (04:47)
[2021-03-22] MEDS: nicotine 2 mg Gum BUCCAL (04:52)
[2021-03-22] MEDS: enoxaparin 40 mg/0.4 mL Syringe SUBCUT (05:46)
--- NOTE | 2021-03-22 07:33 | P.PN_ITS ---
Subjective Subjective: Interval history: POD 1 Patient sitting up in bed feeling better states his arm pain has improved. Denies any swallowing difficulties. Denies any shortness of breath, chest pain, headaches. He is ready to go home. Vitals/I&O/Wt Last Vital Signs Temp 98.2 F 03/22/21 03:27 Pulse 62 03/22/21 03:27 Resp 18 03/22/21 07:11 BP 126/66 03/22/21 03:27 Pulse Ox 94 03/22/21 07:11 03/21/21 03/22/21 03/22/21 22:59 06:59 14:59 Intake Total 60 / 2120 60 / 2180 Output Total 200 / 750 Balance 60 / 1570 -140 / 1430 Weight last 48 hrs Weight 135 lb 4.8 oz Physical Exam Narrative: EXAM NARRATIVE: Patient is alert and oriented x3 with a good general appearance normal normal affect. Mildly tender with palpation about the incisional site. Incision appears to be healing nicely without signs of erythema or drainage. Dressing was changed Hemovac discontinued. Good motor strength throughout both upper extremities. Appears to fire in all motor groups with 4/5 strength. Hands are warm good cap refill in all digits. Normal sensation to light touch in all dermatomal areas. Urinary Catheter Management: Lindsey Latex: Cath Placed During This Visit: yes, but has since been removed by the nurse Urinary Catheter Date of Insertion: 03/21/21 Urinary Catheter Time of Insertion: 07:25 Date Urinary Catheter Removed: 03/21/21 Time Urinary Catheter Discontinued: 13:40 A&P Assessment and plan (1) Cervical myelopathy: Hemovac drain was discontinued dressing was changed with Silverlon application. He is requesting oxycodone for home. We will have physical therapy work with him prior to his discharge today. Home with incentive spirometry for pulmonary toilet. We will follow up in the office in 1 week's time for wound check. Status: Acute (2) Status post cervical spinal fusion: Status: Acute Attestations Medical Necessity Statement*: Home today Coding Level of Care Code Acute [employer] for [place] Diagnoses Cervical myelopathy G95.9 Status post cervical spinal fusion Z98.1
--- NOTE | 2021-03-22 08:15 | PM.DCS ---
Discharge Providers Date of Admission: 03/21/21 06:00 Date of Discharge: March 22, 2021 Attending Provider at Admission: Godfrey Austin DO Attending Provider at Discharge: Godfrey Austin DO Primary Care Provider: NICK Mckeon Diagnoses at Discharge Discharge Diagnosis (1) Cervical myelopathy: Status: Acute (2) Status post cervical spinal fusion: Status: Acute Reason for Visit Reason for Visit: SPONDYLOSIS WITH CERVICAL MYELOPATHY Hospital Course Hospital Course Patient's hospital stay was uneventful. He will be discharged today. Physical Exam Narrative: EXAM NARRATIVE: Significant improvement of his hands Urinary Catheter Management: Lindsey Latex: Cath Placed During This Visit: yes, but has since been removed by the nurse Urinary Catheter Date of Insertion: 03/21/21 Urinary Catheter Time of Insertion: 07:25 Date Urinary Catheter Removed: 03/21/21 Time Urinary Catheter Discontinued: 13:40 Discharge Data Studies Completed and Pending Completed Studies During Hospitalization Category Date Time Status XR cervical spine 1V 18636 Routine Exams 03/21/21 Completed Pending at discharge Category Date Time Status C-arm Fluoroscopy 66688 Routine Exams 03/21/21 06:00 Taken Radiology Impressions Cervical Spine X-Ray 03/21/21 00:00 IMPRESSION: Instrumentation of cervical spine as above. Vitals Last Vital Signs Temp 98.3 F 03/22/21 07:46 Pulse 61 03/22/21 07:46 Resp 16 03/22/21 07:46 BP 149/75 03/22/21 07:46 Pulse Ox 96 03/22/21 07:46 Discharge Plan Discharge Patient Disposition: Home Condition: Stable Prescriptions: New oxycodone 5 mg tablet, oral only 5 mg PO Q4H PRN (Reason: pain) 7 Days Qty: 40 0RF Continued budesonide-formoterol [Symbicort] 160-4.5 mcg/actuation HFA aerosol inhaler 2 puff inhalation BID 0RF Spiriva Respimat 1.25 mcg/actuation mist 2 puff inhalation DAILY 0RF (DME) Walker See Rx Instructions .Route .MEDSUPPLY Qty: 1 0RF Rx Instructions: As directed baclofen 10 mg tablet 10 mg PO QID Qty: 120 0RF hydrocodone-acetaminophen 5-325 mg tablet 1 tab PO Q4H PRN (Reason: pain) 7 Days Qty: 40 0RF tamsulosin 0.4 mg Capsule 0.4 mg PO DAILY 0RF albuterol 90 mcg/actuation Aerosol 90 mcg INHALATION PRN PRN (Reason: Allergic Reaction) 0RF ergocalciferol (vitamin D2) 1,250 mcg (50,000 unit) Capsule 1,250 mcg PO DAILY 0RF polyethylene glycol 3350 [Miralax] 17 gram Powder In Packet 17 g PO DAILY 0RF nicotine (polacrilex) 2 mg Gum 2 mg BUCCAL Q2H 0RF docusate sodium 100 mg Capsule 100 mg PO BID 0RF hydroxyzine HCl 25 mg Tablet 25 mg PO TID PRN (Reason: Anxiety) 0RF Valium 10 mg tablet 10 mg PO DAILY 0RF Discharge Orders: Discharge Order (Routine); Ordered 03/22/21 Ordered By: Constantin Gusman Referrals: Godrfey Austin DO [Physician] - 04/05/21 10:15 am Discharge Diet: Advance as tolerated Discharge Activity: Limit activity as instructed Patient Instructions: Opioid Safety Activity Restrictions/Additional Instructions: Thank you for choosing [facility] for your care! The following is a list of instructions, from your provider, to follow upon your discharge to ensure you have the optimal recovery from your recent injury or surgery. Follow-up care is a kat part of your treatment and safety. Be sure to make and go to all appointments and call your doctor if you are having problems. If you do not already have a follow-up appointment made, call Dr. Austin's] office in the next 1-3 days to make follow up appointment for [1] weeks at [phone]. It is also a good idea to know your test results and keep a list of the medicines you take. Medications will be prescribed for you at your provider's discretion. These medications are to be used as instructed; if they are taken more often that prescribed they will not be refilled early and in most cases will not be refilled at all. > When a refill is needed, you should contact edwardo edward 2-3 business days before your prescription runs out. Medications will NOT be refilled by professor of special education providers after hours! > Many pain medications contain Tylenol (Acetaminophen). Do not consume more than 4,000 mg of Tylenol per day in total with any combination ofmedications. > Pain medications can cause constipation. Please use an over the counter stool softener as directed, while taking pain medications. Consult your local pharmacist with questions or recommendations on stool softeners. If constipation persists, contact our office or your primary care provider. > While under our care, you are not to receive pain medications or other controlled substances from any other provider unless our office is notified and approves. Any attempts to do so will result in refusal to prescribe any further pain medications and possible dismissal from our practice. ? Walking is essential for the healing process after surgery. We would like you to slowly advance your walking. This should be done on relatively flat clear ground (inside or out) or can be done on a treadmill. Remember this goal does not have to happen all at once, slowly increase your distance and duration. This can be broken into more more than one walk per day as tolerated. Patients who walk as directed after surgery rarely require Physical Therapy. In the unlikely event this issue arises your provider will direct hospital staff to make the appropriate arrangements. ? No lifting over 5 pounds {a gallon of milk) or bending/twisting until further notice. Each of these activities places an unnecessary amount of stress onto the body and can impede the delicate healing process. > Instead of bending at the waist, keep your back straight and bend at the knees. > Instead of twisting your torso, keep your back straight and turn your entire body with your feet. ? You may sleep in any position which makes you comfortable. Many patients find comfort sleeping in a reclining chair. It is not abnormal to have difficulty sleeping for the first several weeks following your surgery. We recommend trying Benadry! or Tylenol PM as directed to help with your sleeping difficulties. Both medications are over the counter and available without prescription. ? NO SMOKING!!! Smoking dramatically increases the probability of developing postoperative wound infections. ? Common complaints after lumbar and/or thoracic spine surgery include, but are not limited to: numbness and/or tingling in the legs, pain around the incision and surrounding tissues, muscle spasms, or stiffness of the middle to low back. Contact our office if these symptoms persist or if an acute change occurs. ? No driving for the first 3-5days, and not while taking narcotics until seen at your follow-up appointment and cleared. There are no restrictions for riding on short trips, however if you take a longer trip, arrangements should be made to make regular stops to get out of the vehicle and stretch . ? Swelling is an unfortunate event that will take place with any surgery and is the primary source of your postoperative discomfort. While walking and regular approved activities helps control inflammation, there are additional steps you can take to minimize swelling. > Place ice over the surgical site and surrounding tissue for twenty minutes, followed by applying a low/medium heat (heating pad) for an additional twenty minutes every 1-2 hours as needed for painrelief. > You may use of over the counter anti-inflammatory medications (Ibuprofen, Motrin, Aleve, Advil, etc) as directed on the package label. These types of medicines will significantly reduce the amount of discomfort you experience after surgery from swelling. It should be noted that if you have and allergy to any of these medications, or a history of ulcers or kidney disease you should consult you primary care provider prior to starting these medications. Discharge Attestations Time Spent in Discharge Care*: less than 30 min Quality Metrics Clinical Quality Measures [ No reported AMI, CVA or VTE this stay] Coding Level of Care Code Acute [facility] note Diagnoses Cervical myelopathy G95.9 Status post cervical spinal fusion Z98.1
[2021-03-22] MEDS: docusate sodium 100 mg Capsule PO (08:29)
[2021-03-22] MEDS: baclofen 10 mg Tablet PO (08:29)
[2021-03-22] MEDS: tamsulosin 0.4 mg Capsule PO (08:29)
[2021-03-22] MEDS: diazePAM 5 mg Tablet 10 MG PO (08:29)
[2021-03-22] MEDS: polyethylene glycol 3350 Pkt 17 gm PO (08:30)
[2021-03-22] MEDS: albuterol 8 gm MDI 1 PUFF INHALATION (08:57)
== END 2021-03-22 09:30 | disposition home or self-care (01) | DRG 460 ==
LOC: MEDSURG 03-22 05:59
PROVIDERS: Admitting Provider Orthopaedic Surgery; PCP Nurse Practitioner Family; Visit Provider Orthopaedic Surgery
PROC: 0RG2071 Fusion of 2 or more Cervical Vertebral Joints with Autologous Tissue Substitute, Posterior Approach, Posterior Column, Open Approach (ICD-10-PCS; CPT 22600; principal; 2021-03-21 07:00)
PROC: 0RG2071 Fusion of 2 or more Cervical Vertebral Joints with Autologous Tissue Substitute, Posterior Approach, Posterior Column, Open Approach (ICD-10-PCS; CPT 63001; 2021-03-21 07:00)
DX: M47.12 Other spondylosis with myelopathy, cervical region (principal); F17.200 Nicotine dependence, unspecified, uncomplicated; J44.9 Chronic obstructive pulmonary disease, unspecified; I25.10 Atherosclerotic heart disease of native coronary artery without angina pectoris; I10 Essential (primary) hypertension; E11.9 Type 2 diabetes mellitus without complications
CPT/HCPCS: 51702; 72020; 76000; 93005; 94640; 96372; 97161; C1713; C9359; J0330; J0690; J1100; J1170; J1650; J1885; J2060; J2250; J2270; J2370; J2405; J2704; J3010; J3370; J3490; J3535; J7030

== ENCOUNTER → 2021-05-03 11:41 | Outpatient (BNVA) | payer OTHER, SELFPAY | PROVIDERS: PCP Nurse Practitioner Family; Visit Provider Orthopaedic Surgery | DX: Z47.89 Encounter for other orthopedic aftercare (principal); Z98.1 Arthrodesis status | CPT/HCPCS: 72040 ==

== ENCOUNTER → 2021-06-14 10:02 | Outpatient (BNVA) | payer OTHER, SELFPAY | PROVIDERS: PCP Nurse Practitioner Family; Visit Provider Orthopaedic Surgery | DX: Z47.89 Encounter for other orthopedic aftercare (principal); Z98.890 Other specified postprocedural states; Z98.1 Arthrodesis status | CPT/HCPCS: 72040; 99024 ==

== ENCOUNTER → 2021-08-18 10:50 | Outpatient (BNVA) | payer OTHER, SELFPAY | PROVIDERS: PCP Nurse Practitioner Family; Visit Provider Orthopaedic Surgery | DX: M47.816 Spondylosis without myelopathy or radiculopathy, lumbar region (principal); Z48.89 Encounter for other specified surgical aftercare; Z98.1 Arthrodesis status | CPT/HCPCS: 72040; 72110; 99214 ==

== ENCOUNTER 2021-12-07 14:07 | Outpatient (CLI) | payer OTHER, SELFPAY ==
--- NOTE | 2021-12-07 14:42 | MR_ITS ---
WS: [id number] MRI LUMBAR SPINE NONCONTRAST HISTORY: PAIN, leg numbness and balance issues. COMPARISON: No similar studies. TECHNIQUE: Sagittal and axial multisequence imaging is submitted. L5 anterolisthesis by 6.7 mm. No fracture or marrow edema. Moderate narrowing of the L5-S1 disc space . Pars defects are suspected. Otherwise normal lumbar alignment. Less than 2 mm retrolisthesis of L2. Disc spaces are mildly narrowed and desiccated. Conus terminates normally at L1-2 disc level. L1-L2: No stenosis. Mild ligamentum flavum hypertrophy. L2-L3: Mild bilateral facet joint and ligamentum flavum arthritis. No stenosis. L3-L4: Mild annular disc bulging with mild ligamentum flavum and facet arthritis. Small amount of flu id in the facet joints. Mild disc encroachment upon the thecal sac with contact on the traversing L4 nerve roots. Mild RIGHT foraminal narrowing. L4-L5: Mild disc bulging with a central disc protrusion. Moderate ligamentum flavum and facet arthrit is. Fluid in the facet joints bilaterally. Encroachment upon the thecal sac. Mild central, bilateral foraminal and subarticular recess narrowing. L5-S1: Mild unroofing of the disc. Mild encroachment upon the ventral thecal sac. Ligamentum flavum a nd facet arthritis. Moderate bilateral foraminal stenosis. Disc contacts the exiting L5 nerve roots b ilaterally. No paravertebral abnormalities. Very mild atherosclerosis aorta. No aneurysm. MR/MR lumbar spine wo con* [id number] IMPRESSION: 1. Moderate bilateral foraminal stenosis at L5-S1 with disc contacting and encr oaching upon the exiting L5 nerve roots. 2. Grade 1 spondylolisthesis of L5. 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 3. Mild disc encroachment upon the traversing L4 nerve roots and mild RIGHT for aminal narrowing at L3-4. 4. Mild central, bilateral foraminal subarticular recess stenosis at L4-5. 5. Moderate facet joint arthritis at L4-5.
== END 2021-12-07 14:08 | disposition home or self-care (01) ==
LOC: RAD 14:08
PROVIDERS: PCP Nurse Practitioner Family; Visit Provider Orthopaedic Surgery
DX: R20.0 Anesthesia of skin (principal); M48.07 Spinal stenosis, lumbosacral region; M47.816 Spondylosis without myelopathy or radiculopathy, lumbar region; M48.061 Spinal stenosis, lumbar region without neurogenic claudication; M43.16 Spondylolisthesis, lumbar region
CPT/HCPCS: 72148

== ENCOUNTER → 2021-12-08 09:58 | Outpatient (BNVA) | payer OTHER, SELFPAY | PROVIDERS: PCP Nurse Practitioner Family; Visit Provider Orthopaedic Surgery | DX: Z98.1 Arthrodesis status (principal); Z47.89 Encounter for other orthopedic aftercare; M48.061 Spinal stenosis, lumbar region without neurogenic claudication; Y08.09XA Assault by strike by other specified type of sport equipment, initial encounter | CPT/HCPCS: 72040; 72100; 99214 ==

== ENCOUNTER → 2022-03-06 10:31 | Outpatient (BNVA) | payer OTHER, SELFPAY | PROVIDERS: PCP Nurse Practitioner Family; Visit Provider Internal Medicine Pulmonary Disease | DX: R91.8 Other nonspecific abnormal finding of lung field (principal); R06.09 Other forms of dyspnea; J44.9 Chronic obstructive pulmonary disease, unspecified; F17.210 Nicotine dependence, cigarettes, uncomplicated | CPT/HCPCS: 99204 ==

== ENCOUNTER 2023-02-12 11:31 | Emergency (ER) | payer OTHER, SELFPAY ==
[2023-02-12 11:34] VITALS: BP 171/118; PULSE 56; RESP 18; TEMP 36.3; O2SAT 95; BMI 23.3
--- NOTE | 2023-02-12 12:08 | ED_ITS ---
HPI - Abdominal Pain 2 General: Chief Complaint: Abdominal Pain Stated Complaint: abd pain Time Seen by Provider: 02/12/23 11:59 Source: patient Mode of arrival: ambulatory History of Present Illness: 72-year-old male presents emergency room complaining of constipation states has not been of a bowel movement last several days he is not exactly sure how long he is tried stool softener and MiraLAX with no results. 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 Denies any fever sweats chills nausea vomiting or diarrhea. MD elicited complaint: abdominal pain Pertinent past history: constipation Onset (ago): day(s) Pain Consistency: constant Location: Diffuse Severity: moderate Quality: cramping Exacerbating factors: nothing Relieving factors: nothing Associated Symptoms: Denies no associated symptoms, anorexia, belching, bloating, change in bowel habits, change in stool character, chills, coffee ground emesis, constipation, GI cramping, diarrhea, dyspepsia, dysuria, excessive flatus, fever(s), heartburn, hematochezia, hematuria, hematemesis, fecal incontinence, loose stools, melena, nausea, poor appetite, syncope, vomiting and other Review of Systems 2 Const: Reports: fatigue; Denies: fever(s), chills or malaise Card: Denies: chest pain, palpitations or syncope Resp: Denies: dyspnea GI: Denies: abdominal pain, nausea, vomiting, hematemesis, coffee ground emesis, heartburn, diarrhea, constipation, bloating, GI cramping, belching, excessive flatus, fecal incontinence, change in bowel habits, change in stool character, hematochezia, melena or other : Denies: flank pain, dysuria, urinary frequency, urinary urgency or hematuria Musc: Denies: neck pain or back pain Skin/Breast: Denies: rash PFSH ED 2 PFSH: Family History Other CAD (coronary artery disease) Diabetes Social History Smoking and tobacco/nicotine status: current some day tobacco/nicotine user cigarettes Packs smoked per day: 0.5 Years cigarettes smoked: 52 [ Other cigarette details: 1ppd previously ] Alcohol intake: current Alcohol intake frequency: 0-2 Drinks per Day Alcohol type: beer and hard liquor Physical Exam 2 Const: GENERAL APPEARANCE: cooperative and comfortable O RIENTATION/CONSCIOUSNESS: Yes awake, Yes oriented to person, Yes oriented to place and Yes oriented to time HENMT: COMMON NORMALS: normocephalic, atraumatic and hearing grossly normal bilaterally HEAD & SCALP: normocephalic and atraumatic Resp: COMMON NORMALS: normal respiratory effort, No retractions, No use of accessory muscles and clear to auscultation bilaterally AUSCULTATION: clear to auscultation bilaterally Cardio: COMMON NORMALS: regular rate, regular rhythm and No murmurs present (Cardio) RATE: regular rate RHYTHM: regular rhythm GI: COMMON NORMALS: No hepatosplenomegaly present AUSCULTATION: Yes normoactive bowel sounds PALPATION: Yes Tenderness to palpation present (GI) (Diffuse), No Guarding due to palpation present (GI) and Yes No hepatosplenomegaly present Extremity: COMMON NORMALS: normal to inspection, capillary refill normal, no clubbing, cyanosis or edema, no calf tenderness and no pedal edema Neuro: SENSORIUM/ORIENTATION: Yes oriented to person, Yes oriented to place and Yes oriented to time Skin: COMMON NORMALS: no rashes or lesions noted GENERAL SKIN EXAM: no rashes or lesions noted Course 2 Vital Signs: Vital signs: Vital Signs Temperature 97.3 F L 02/12/23 11:34 Pulse Rate 56 L 02/12/23 11:34 Respiratory Rate 18 02/12/23 11:34 Blood Pressure 171/118 02/12/23 11:34 Pulse Oximetry 95 02/12/23 11:34 MDM - Abdominal Pain Medical Decision Making Believe patient is primarily just constipated would like to have gotten urine from but he was concerned that we are going to drug screen him and advised him we really did not need to know and were not planning on screening for drugs this particular case is not really pertinent anyway. He declined and eventually the left. Discharge with recommendation for lactulose 1 dose every 2 hours until desired results achieved remainder of his labs and imaging reviewed Differential Diagnosis Likely abdominal pain, calculus of kidney, constipation, diverticulitis and pancreatitis Medical Records I reviewed the patient's medical records. Lab Data I reviewed the patient's lab results. 02/12/23 12:15 02/12/23 12:15 Labs/Radiology: Radiology Impressions KUB X-Ray 02/12/23 12:09 IMPRESSION: No acute findings. Laboratory Results WBC 6.79 10^3/uL (3.29-11.43) 02/12/23 12:15 RBC 4.35 10^6/uL (3.85-5.65) 02/12/23 12:15 Hgb 15.00 g/dL (11.27-16.99) 02/12/23 12:15 Hct 43.2 % (37-53) 02/12/23 12:15 MCV 99.3 fl (82-101) 02/12/23 12:15 MCH 34.5 pg (27-33) H 02/12/23 12:15 MCHC 34.7 g/dL (30-55) 02/12/23 12:15 RDW 12.4 % (12.1-15.1) 02/12/23 12:15 Plt Count 239 10^3/cmm (157-399) 02/12/23 12:15 MPV 11.2 fL (7.4-10.4) H 02/12/23 12:15 Neut % (Auto) 60.4 % 02/12/23 12:15 Lymph % (Auto) 25.5 % 02/12/23 12:15 [place] % (Auto) 11.0 % 02/12/23 12:15 Eos % (Auto) 2.1 % 02/12/23 12:15 Baso % (Auto) 0.9 % 02/12/23 12:15 Neut # (Auto) 4.10 10^3/uL (1.8-7.7) 02/12/23 12:15 Lymph # (Auto) 1.7 10^3/uL (0.8-4.8) 02/12/23 12:15 [place] # (Auto) 0.8 10^3/uL (0.2-0.9) 02/12/23 12:15 Eos # (Auto) 0.1 10^3/uL (0.0-0.8) 02/12/23 12:15 Baso # (Auto) 0.1 10^3/uL (0.0-0.1) 02/12/23 12:15 Nucleated RBC % (auto) 0 % 02/12/23 12:15 Nucleated RBCs # 0.0 /100WBC 02/12/23 12:15 Sodium 139 mmol/L (136-145) 02/12/23 12:15 Potassium 4.2 mmol/L (3.5-5.1) 02/12/23 12:15 Chloride 103 mmol/L (98-107) 02/12/23 12:15 Carbon Dioxide 24 mmol/L (22-29) 02/12/23 12:15 Anion Gap 16.2 (5-19) 02/12/23 12:15 BUN 9 mg/dL (8-23) 02/12/23 12:15 Creatinine 1.0 mg/dL (0.7-1.2) 02/12/23 12:15 GFR Calculation Not Reportable 02/12/23 12:15 Glucose 102 mg/dL (65-115) 02/12/23 12:15 Calculated Osmolality 287 mOsm/kg (285-295) 02/12/23 12:15 Calcium 9.6 mg/dL (8.5-10.5) 02/12/23 12:15 Total Bilirubin 0.8 mg/dL (0.15-1.2) 02/12/23 12:15 AST 20 U/L (0-40) 02/12/23 12:15 ALT 18 U/L (0-41) 02/12/23 12:15 Alkaline Phosphatase 60 U/L (40-130) 02/12/23 12:15 Total Protein 7.3 g/dL (6.6-8.7) 02/12/23 12:15 Albumin 4.5 g/dL (3.5-5.2) 02/12/23 12:15 Globulin 2.8 g/dL (1.3-4.6) 02/12/23 12:15 Lipase 23 U/L (13-60) 02/12/23 12:15 All radiology interpretation(s) finalized by discharge Discharge Plan Discharge Patient Disposition: Home Clinical Impression: Constipation Condition: Stable Prescriptions: New lactulose 20 gram/30 mL solution 30 g PO Q2H 1 Days Qty: 540 0RF Rx Instructions: until desired laxative effect No Action budesonide-formoterol [Symbicort] 160-4.5 mcg/actuation HFA aerosol inhaler 2 puff inhalation BID (DME) Walker See Rx Instructions .Route .MEDSUPPLY Qty: 1 0RF Rx Instructions: As directed benzonatate 150 mg capsule 150 mg PO BID PRN cholecalciferol (vitamin D3) 50 mcg (2,000 unit) capsule 50 mcg PO DAILY doxepin 10 mg/mL concentrate 15 mg PO .at bedtime PRN fluoxetine 20 mg/5 mL (4 mg/mL) solution 60 mg PO DAILY hydrocodone-acetaminophen 10-325 mg tablet 1 tab PO Q8H PRN Ensure Liquid PO doxepin 10 mg capsule 10 mg PO .at bedtime fluoxetine 20 mg capsule 40 mg PO DAILY nicotine 10 mg cartridge 1 inh inhalation BID PRN tamsulosin 0.4 mg Capsule 0.4 mg PO DAILY albuterol 90 mcg/actuation Aerosol 90 mcg INHALATION PRN PRN (Reason: Allergic Reaction) nicotine (polacrilex) 2 mg Gum 2 mg BUCCAL Q2H docusate sodium 100 mg Capsule 100 mg PO BID hydroxyzine HCl 25 mg Tablet 25 mg PO TID PRN (Reason: Anxiety) Valium 10 mg tablet 10 mg PO DAILY Discharge Orders: Discharge ED (Routine); Ordered 02/12/23 Ordered By: Rigo Rao Referrals: Mesha Mae FNP [Primary Care Provider] - Discharge Diet: Clear Liquid Discharge Activity: Increase activity as tolerated Patient Instructions: Constipation (ED), Opioid Safety, Pain Management Activity Restrictions/Additional Instructions: Thank you for choosing [facility] for your healthcare needs today. Please realize this is an emergency room and that we are providing you with a medical screening exam and this may not be complete and all inclusive of all the testing and or work up that you may need to determine your ailment or severity of your illness. It is very important that you follow up as instructed or that you return to the Emergency Department should you have concerns or if your condition changes or worsens in any way. Use lactulose every 2 hours while awake until desired results achieved Coding Level of Care Code ED Mobility Manager for [place]
--- NOTE | 2023-02-12 12:09 | XRR_ITS ---
PROCEDURE INFORMATION: Exam: XR Abdomen Exam date and time: 02/12/2023 12:21 PM Age: 72 years old Clinical indication: Constipation; Additional info: Constipation abd pain TECHNIQUE: Imaging protocol: Radiologic exam of the abdomen. Views: Frontal supine view of the abdomen. 1 View. COMPARISON: CR XR lumbar spine 2-3V* [id number] 12/08/2021 9:58 AM FINDINGS: Gastrointestinal tract: No air-filled dilated bowel loops or evidence of bowel thickening. Intraperitoneal space: No supine evidence of free air. Bones/joints: Mild degenerative changes along the spine. XR/XR KUB portable [id number] IMPRESSION: No acute findings.
[2023-02-12] MEDS: sodium chloride 0.9% 1,000 ML 999 ML IV (12:23)
[2023-02-12 12:30] LABS: Basophils # 0.1 10^3/uL (0.0-0.1); Basophils % 0.9 %; Eosinophils # 0.1 10^3/uL (0.0-0.8); Eosinophils % 2.1 %; Hematocrit 43.2 % (37-53); Lymphocytes # 1.7 10^3/uL (0.8-4.8); Lymphocytes % 25.5 %; Mean Corpuscular HGB Conc 34.7 g/dL (30-55); Mean Corpuscular Hemoglobin 34.5 pg (27-33); Mean Corpuscular Volume 99.3 fl (82-101); Mean Platelet Volume 11.2 fL (7.4-10.4); Monocytes # 0.8 10^3/uL (0.2-0.9); Neutrophils % 60.4 %; Nucleated Red Blood Cells % 0 %; Platelet Count 239 10^3/cmm (157-399); Red Blood Count 4.35 10^6/uL (3.85-5.65); Red Cell Distribution Width 12.4 % (12.1-15.1); White Blood Count 6.79 10^3/uL (3.29-11.43)
[2023-02-12 12:47] LABS: Alanine Aminotransferase 18 U/L (0-41); Albumin Level 4.5 g/dL (3.5-5.2); Alkaline Phosphatase 60 U/L (40-130); Anion Gap 16.2 (5-19); Aspartate Amino Transferase 20 U/L (0-40); Blood Urea Nitrogen 9 mg/dL (8-23); Calcium 9.6 mg/dL (8.5-10.5); Carbon Dioxide 24 mmol/L (22-29); Chloride 103 mmol/L (98-107); Creatinine Clr Calc Pharmacy 59.7053; Globulin 2.8 g/dL (1.3-4.6); Glucose 102 mg/dL (65-115); Lipase 23 U/L (13-60); Osmolality Calculated 287 mOsm/kg (285-295); Potassium 4.2 mmol/L (3.5-5.1); Sodium 139 mmol/L (136-145); Total Bilirubin 0.8 mg/dL (0.15-1.2); Total Protein 7.3 g/dL (6.6-8.7)
== END 2023-02-12 14:44 | disposition home or self-care (01) ==
PROVIDERS: Emergency Provider Family Medicine; PCP Nurse Practitioner Family
DX: K59.00 Constipation, unspecified (principal); F17.210 Nicotine dependence, cigarettes, uncomplicated
CPT/HCPCS: 74018; 80053; 83690; 85025; 99284; J7030

== ENCOUNTER 2024-07-24 12:24 | Emergency (ER) | payer OTHER, SELFPAY ==
[2024-07-24] VITALS (8 sets, daily range): BP systolic 130–156; BP diastolic 71–80; PULSE 60–72; RESP 14–18; TEMP 36.6; O2SAT 93–97; BMI 24.4
--- NOTE | 2024-07-24 13:25 | W.ED.EXTPRO ---
HPI - Extremity Problem General: Chief complaint: Extremity Injury, Lower Stated complaint: fall, hip and L leg injury Time Seen by Provider: 07/24/24 13:05 History of Present Illness: This patient is a 73-year-old white male who presents to the emergency department complaining of right hip pain. Patient states he woke up around 1:00 in the morning with the right hip pain. He states he was somewhat tangled up in the covers. He then got out of bed and had significant pain with ambulation and he fell but landed on the left side. Related Data Home Medications ?Medication ?Instructions ?Recorded ?Confirmed budesonide-formoterol HFA 160 2 puff inhalation BID 03/31/20 03/01/22 mcg-4.5 mcg/actuation aerosol inhaler (Symbicort) albuterol 90 mcg/actuation aerosol 90 mcg inhalation PRN PRN Allergic 03/17/21 03/06/22 inhaler Reaction docusate sodium 100 mg capsule 100 mg PO BID 03/17/21 03/01/22 hydroxyzine HCl 25 mg tablet 25 mg PO TID PRN Anxiety 03/17/21 03/06/22 nicotine (polacrilex) 2 mg gum 2 mg buccal Q2H 03/17/21 03/06/22 tamsulosin 0.4 mg capsule 0.4 mg PO DAILY 03/17/21 03/06/22 diazepam 10 mg tablet (Valium) 10 mg PO DAILY 03/21/21 03/01/22 benzonatate 150 mg capsule 150 mg PO BID PRN 03/06/22 03/06/22 cholecalciferol (vitamin D3) 50 50 mcg PO DAILY 03/06/22 03/06/22 mcg (2,000 unit) capsule doxepin 10 mg capsule 10 mg PO .at bedtime 03/06/22 03/06/22 doxepin 10 mg/mL oral concentrate 15 mg PO .at bedtime PRN 03/06/22 03/06/22 fluoxetine 20 mg capsule 40 mg PO DAILY 03/06/22 03/06/22 fluoxetine 20 mg/5 mL (4 mg/mL) 60 mg PO DAILY 03/06/22 03/06/22 oral solution food supplemt, lactose-reduced ea PO 03/06/22 03/06/22 (Ensure oral liquid) hydrocodone 10 mg-acetaminophen 1 tab PO Q8H PRN 03/06/22 03/06/22 325 mg tablet nicotine 10 mg inhalation cartridge 1 inh inhalation BID PRN 03/06/22 03/06/22 Previous Rx's ?Medication ?Instructions ?Recorded Jefry #Devon ea 03/31/20 Allergies Allergy/AdvReac Type Severity Reaction Status Date / Time gabapentin Allergy Mild Rash Verified 02/12/23 11:40 trazodone Allergy Unknown Unknown Verified 02/12/23 11:40 effexor Allergy Unknown Unknown Uncoded 02/12/23 11:40 Review of Systems General: Reports: 10 or more systems reviewed and unremarkable except in HPI and below Musc: Reports: other (Right hip pain) PFSH ED PFSH: Family History Other CAD (coronary artery disease) Diabetes Social History Smoking and tobacco/nicotine status: current some day tobacco/nicotine user cigarettes Packs smoked per day: 0.5 Years cigarettes smoked: 52 [ Other cigarette details: 1ppd previously ] Alcohol intake: current Alcohol intake frequency: 0-2 Drinks per Day Alcohol type: beer and hard liquor Physical Exam Const: COMMON NORMALS: no acute distress, patient oriented x3 and no limitations GENERAL APPEARANCE: cooperative and comfortable HENMT: COMMON NORMALS: normocephalic, atraumatic, Normal nasal mucous membranes and turbinates present, moist oral mucous membranes and oropharynx normal HEAD & SCALP: normal to inspection, normocephalic and atraumatic FACE & SINUS: normal facial exam NOSE: Normal nasal mucous membranes and turbinates present Eye: COMMON NORMALS: Equal, round and reactive pupils present, EOMs intact bilaterally and conjunctivae normal GENERAL EYE: appearance normal, both eyes and all related structures CONJUNCTIVA: Yes conjunctivae normal PUPIL: Yes Equal, round and reactive pupils present Neck/C-Spine: COMMON NORMALS: supple and no JVD Chest: COMMONS NORMALS: normal inspection of the chest Resp: COMMON NORMALS: normal respiratory effort and clear to auscultation bilaterally AUSCULTATION: clear to auscultation bilaterally Cardio: COMMON NORMALS: no JVD, regular rate, regular rhythm, No gallops present (Cardio), No murmurs present (Cardio) and No rub (Cardio) RATE: regular rate RHYTHM: regular rhythm GI: COMMON NORMALS: Normal to inspection, nondistended, normoactive bowel sounds present, Soft to palpation and non-tender AUSCULTATION: Yes normoactive bowel sounds PALPATION: Yes Soft to palpation : COMMON NORMALS: Yes no CVA tenderness BLADDER/KIDNEY EXAM: Yes no CVA tenderness Back/Pelvis: COMMON NORMALS: no CVA tenderness and thoracic and lumbar spine normal to inspection Extremity: COMMON NORMALS: normal to inspection NARRATIVE EXTREMITY EXAM: Mild to moderate discomfort with range of motion of the right hip. No shortening. Normal neurovascular exam right lower extremity. Neuro: COMMON NORMALS: patient oriented x3 and CN's II-XII intact bilaterally Psych: COMMON NORMALS: mental status grossly normal, Normal thought process present and cooperative THOUGHT PROCESS: Normal thought process present Skin: COMMON NORMALS: no rashes or lesions noted, turgor normal and no jaundice GENERAL SKIN EXAM: no rashes or lesions noted and turgor normal Course Vital Signs: Vital signs: Vital Signs Temperature 97.9 F 07/24/24 12:28 Pulse Rate 61 07/24/24 16:26 Respiratory Rate 18 07/24/24 17:20 Blood Pressure 148/80 07/24/24 16:26 Pulse Oximetry 93 07/24/24 16:26 Oxygen Delivery Me thod Room Air 07/24/24 16:26 MDM - Extremity (Nontraumatic) Medical Decision Making The plain films of the right hip and pelvis were read by the radiologist. They could not rule out subtle femoral neck fracture. They recommended CT. CT scan was obtained. That was read by the radiologist as normal. Patient's pain was treated with morphine in the emergency department. He was discharged in stable condition. He does have pain medication at home. Recommended he follow-up with his primary care physician as needed. Lab Data Radiology Impressions Hip/Pelvis X-Ray 07/24/24 13:31 IMPRESSION: Very equivocal femoral neck/head abnormality. As clinically warranted, CT scan of the hip would resolve the issue. Hip CT 07/24/24 15:37 IMPRESSION: 1. No acute bony abnormality. Degenerative changes. 2. Decreased bone density. All radiology interpretation(s) finalized by discharge Discharge Plan Discharge Patient Disposition: Home Clinical Impression: Hip sprain Qualifiers: Encounter type: initial encounter Laterality: right Qualified Code(s): S73.101A - Unspecified sprain of right hip, initial encounter Condition: Stable Prescriptions: No Action budesonide-formoterol [Symbicort] 160-4.5 mcg/actuation HFA aerosol inhaler 2 puff inhalation BID (DME) Walker See Rx Instructions .Route .MEDSUPPLY Qty: 1 0RF Rx Instructions: As directed benzonatate 150 mg capsule 150 mg PO BID PRN cholecalciferol (vitamin D3) 50 mcg (2,000 unit) capsule 50 mcg PO DAILY doxepin 10 mg/mL concentrate 15 mg PO .at bedtime PRN fluoxetine 20 mg/5 mL (4 mg/mL) solution 60 mg PO DAILY hydrocodone-acetaminophen 10-325 mg tablet 1 tab PO Q8H PRN Ensure Liquid PO doxepin 10 mg capsule 10 mg PO .at bedtime fluoxetine 20 mg capsule 40 mg PO DAILY nicotine 10 mg cartridge 1 inh inhalation BID PRN tamsulosin 0.4 mg Capsule 0.4 mg PO DAILY albuterol 90 mcg/actuation Aerosol 90 mcg INHALATION PRN PRN (Reason: Allergic Reaction) nicotine (polacrilex) 2 mg Gum 2 mg BUCCAL Q2H docusate sodium 100 mg Capsule 100 mg PO BID hydroxyzine HCl 25 mg Tablet 25 mg PO TID PRN (Reason: Anxiety) Valium 10 mg tablet 10 mg PO DAILY Discharge Orders: Discharge ED (Routine); Ordered 07/24/24 Ordered By: Adolfo Jerome Referrals: Mesha Mae FNP [Primary Care Provider, Family Practice] Patient Instructions: Hip Sprain (ED) Print Language: Slovak Coding Level of Care Code ED 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
--- NOTE | 2024-07-24 13:31 | XR_ITS ---
WS: [id number] XR hip RT 2-3V wo/w pel* [id number] REASON FOR EXAM: Hip Pain FINDINGS: Mild osteoarthritis of the right hip. Pubic rami are intact. Very subtle deformity at the femoral head and neck junction. Minimal possibility for occult nondisplaced subcapital fracture. XR/XR hip RT 2-3V wo/w pel* [id number] IMPRESSION: Very equivocal femoral neck/head abnormality. As clinically warranted, CT scan of the hip would resolve the issue.
[2024-07-24] MEDS: ondansetron hcl ODT 4 mg Tab PO (14:04)
[2024-07-24] MEDS: morphine 4 mg/mL SDV 1 mL 10 MG IM (14:08)
--- NOTE | 2024-07-24 15:37 | CTR_ITS ---
PROCEDURE INFORMATION: Exam: CT Right Lower Extremity Without Contrast, Hip Exam date and time: 07/24/2024 4:35 PM Age: 73 years old Clinical indication: Right; C/O RT hip pain since yesterday. No injury. ; Additional info: R/O fracture TECHNIQUE: Imaging protocol: CT of the right lower extremity without contrast was performed. Exam focused on the hip. Radiation optimization: All CT scans at this facility use at least one of these dose optimization techniques: automated exposure control; mA and/or kV adjustment per patient size (includes targeted exams where dose is matched to clinical indication); or iterative reconstruction. COMPARISON: CR XR hip RT 2-3V wo/w pel* [id number] 07/24/2024 1:33 PM RADIATION DOSE METRICS: Total DLP (mGy-cm): 299.74 FINDINGS: Bones/joints: No fracture or dislocation. The bone density is decreased. Mild right hip joint space narrowing. Degenerative changes involve the right sacroiliac joint and visualized lower lumbar spine. Soft tissues: Normal. Vasculature: Calcific plaque involves the iliac arteries. CT/CT hip RT wo con* [id number] IMPRESSION: 1. No acute bony abnormality. Degenerative changes. 2. Decreased bone density.
[2024-07-24] MEDS: morphine 4 mg/mL SDV 1 mL IM (17:20)
== END 2024-07-24 17:45 | disposition home or self-care (01) ==
PROVIDERS: Emergency Provider Emergency Medicine; PCP Nurse Practitioner Family
DX: S73.101A Unspecified sprain of right hip, initial encounter (principal); F17.210 Nicotine dependence, cigarettes, uncomplicated; X58.XXXA Exposure to other specified factors, initial encounter
CPT/HCPCS: 73502; 73700; 96372; 99284; J2270; Q0162